=== PATIENT | male | born 1985 ===

== ENCOUNTER 2021-05-03 23:45 | Emergency (ER) | payer SELFPAY ==
[~2021-05-03] VITALS: Ht 170.2 cm; Wt 77.1 kg
[2021-05-03 23:57] VITALS: BP 154/102
--- NOTE | 2021-05-04 00:12 | NUR ---
FSBS: 114. AWARE
--- NOTE | 2021-05-04 00:22 | NUR ---
Patient discharged to home in stable condition. Written and verbal after care instructions given. Patient verbalizes understanding of instruction.
== END 2021-05-04 00:22 | disposition home or self-care (01) ==
LOC: ER 05-04 00:03
DX: Z00.8 Encounter for other general examination (principal); Z71.1 Person with feared health complaint in whom no diagnosis is made; Z98.890 Other specified postprocedural states
CPT/HCPCS: 82962-TC